=== PATIENT | male | born 1990 | race Caucasian/White ===

== ENCOUNTER 2017-01-20 03:17 | Emergency (ER) | payer OTHER ==
[2017-01-20 03:26] VITALS: BP 128/83; PULSE 83; RESP 16; TEMP 97.7; O2SAT 97
--- NOTE | 2017-01-20 03:30 | EDPHY ---
H & P Stated Complaint: pt c/o increasing pain/swelling in R foot after stepping on glass 1 wk ago HPI/ROS: HPI CHIEF COMPLAINT: Right foot laceration, 8 days old HISTORY OF PRESENT ILLNESS: This patient very pleasant 18-year-old male, he presents emergency room at 3:40 a.m. in the morning out of concern of a wound on the bottom of his right foot. Patient states approximately 8 days ago he broke a glass bottle in his house he stepped on a piece of glass that he did not realize was there and it lacerated the bottom of his right foot specifically plantar region 5th metatarsal region. Patient states he has been keeping it clean, he does tell me his tetanus shot is up-to-date, he states that he became concerned tonight as he had little bit of redness and thought maybe it was getting infected he came here for evaluation. He does tell me went to an urgent care earlier in the week to have it looked at however never had any x-ray or imaging. He has not had any fever. Has not been draining there has been no pus. He tells me that he does not really have much pain around the site he has been hiking even when rock climbing all having this injury. Past Medical History: Denies significant medical history Past Surgical History: Gaffney tooth removal Social History: Occasional medical marijuana, denies drugs or tobacco products Family History: noncontributory ROS REVIEW OF SYSTEMS: A comprehensive 10 point review of systems is otherwise negative aside from elements mentioned in the history of present illness. Exam Constitutional triage nursing summary reviewed, vital signs reviewed, awake/ alert. Eyes normal conjunctivae and sclera, EOMI, PERRLA. HENT normal inspection, atraumatic, moist mucus membranes, no epistaxis, neck supple/ no meningismus, no raccoon eyes. Respiratory clear to auscultation bilaterally, normal breath sounds, no respiratory distress, no wheezing. Cardiovascular rate normal, regular rhythm, no murmur, no edema, distal pulses normal. Gastrointestinal soft, non-tender, no rebound, no guarding, normal bowel sounds, no distension, no pulsatile mass. Genitourinary no CVA tenderness. Musculoskeletal no midline vertebral tenderness, full range of motion, no calf swelling, no tenderness of extremities, no meningismus, good pulses, neurovascularly intact. Skin right foot: Plantar Region: There is a very small 2 cm vertically oriented laceration on the plantar region over the 5th metatarsal, no edmar pus , no significant cellulitis, no foreign body visualized this wound is approximately 8-day-old. Otherwise foot is neurovascular intact free. pink, warm, & dry, no rash, skin atraumatic. Neurologic awake, alert and oriented x 3, AAOx3, moves all 4 extremities equally, motor intact, sensory intact, CN II-XII intact, normal cerebellar, normal vision, normal speech. Psychiatric normal mood/affect. Heme/Lymph/Immune no lymphadenopathy. Differential Diagnosis: Includes but is not limited to in a particular order, foot laceration, wound healing, evaluation for wound infection, foreign body Medical Decision Making: plan for patient to have x-ray of the foot to make sure there is no foreign body visualized. I did offer this patient antibiotics however I do not see any significant pus, redness, swelling or streaking. No evidence of significant infection at this time. I did not palpate or see if foreign body. The patient has declined antibiotics as he tells me he is very sensitive to them. He tells me that he does not like taking them and that they often upset his stomach. He did request possibly getting an antibiotic prescription as if the wound got worse with more redness swelling or drainage he would start taking it. He is agreeable for x-ray. He does tell me his tetanus shot is up-to-date Re-evaluation: ED x-ray: Right foot three view: No foreign body visualized. No debris where wound is. Patient does understand return emergency room if he has worsening symptoms includes worsening redness, swelling, pain, drainage. Or signs of infection. Laceration is very small 2 cm 8-day-old. 0400: x-ray reviewed no foreign body seen. Patient does understand the glass did not show up on x-ray. Does not have any focal tenderness on exam specifically when I press over the laceration I do not appreciate a foreign body nor does it cause him pain. I recommend he watches a closely takes Keflex if needed follows up with Podiatry referral. Return to the ER if any worsening symptoms questions or concerns he understands. Source: Patient - Medical/Surgical History Hx Asthma: No Hx Chronic Respiratory Disease: No Hx Diabetes: No Hx Cardiac Disease: No Hx Renal Disease: No Hx Cirrhosis: No Hx Alcoholism: No Hx HIV/AIDS: No Hx Splenectomy or Spleen Trauma: No Other PMH: buck, unk parasitic infx - Social History Smoking Status: Former smoker Constitutional: Initial Vital Signs Temperature (C) 36.5 C 01/20/17 03:21 Heart Rate 83 01/20/17 03:21 Respiratory Rate 16 01/20/17 03:21 Blood Pressure 128/83 H 01/20/17 03:21 O2 Sat (%) 97 01/20/17 03:21 O2 Delivery Mode Room Air Allergies/Adverse Reactions: hydrocortisone Allergy (Verified 01/20/17 03:28) unk abx Allergy (Uncoded 01/20/17 03:28) Home Medications: Medication Instructions Recorded Buraprenephrin 01/20/17 Cephalexin [Keflex] 500 mg PO Q6H #28 cap 01/20/17 Departure - Departure Disposition: Home, Routine, Self-Care Clinical Impression: Cellulitis Qualifiers: Site of cellulitis: extremity Site of cellulitis of extremity: lower extremity Laterality: right Qualified Code(s): L03.115 - Cellulitis of right lower limb Condition: Good Instructions: Laceration (ED), Cellulitis (ED) Additional Instructions: 1. Please keep your wound clean, dry and protected. Use warm soapy water to clean it. 2. Start taking antibiotic if you decide your foot is getting worse or there appears to be more infection. This includes increasing pain, redness, and drainage. 3. Return to the emergency room if you have any questions or concerns or worsening of symptoms. Referrals: CHANA MONTALVO [Primary Care Provider] - As per Instructions Wilfredo Shafer DPM [Doctor of Podiatric Medicine] - As per Instructions Prescriptions: Cephalexin [Keflex] 500 mg PO Q6H #28 cap
== END 2017-01-20 04:04 | disposition home or self-care (01) ==
DX: S91.311A Laceration without foreign body, right foot, initial encounter (principal); L03.115 Cellulitis of right lower limb; Z87.891 Personal history of nicotine dependence; W25.XXXA Contact with sharp glass, initial encounter; Y92.009 Unspecified place in unspecified non-institutional (private) residence as the place of occurrence of the external cause